=== PATIENT | female | born 2000 | race Caucasian/White ===

== ENCOUNTER 2021-12-04 16:45 | Emergency (ER) | payer BC, SELFPAY ==
[2021-12-04 16:55] VITALS: BP 130/83; PULSE 91; RESP 16; TEMP 37.1; O2SAT 100
--- NOTE | 2021-12-04 18:36 | ED.NAVMDI ---
HPI - Nausea/Vomiting/Diarrhea General Chief complaint: Nausea/Vomiting/Diarrhea Stated complaint: Abdominal Pain Time Seen by Provider: 12/04/21 18:37 Source: patient, family, RN notes reviewed and old records reviewed Mode of arrival: ambulatory Limitations: no limitations History of Present Illness HPI Narrative: 21-year-old female accompanied by family member has had 1 to 2 months of diarrhea episodes. Patient has had decreased appetite, some nausea also has had some vomiting.Patient denies any antibiotic use in the last 6 months. She states she does have some burping, no acute abdominal pain or bloating experienced. Patient reports that she has taken Imodium which did help resolve diarrhea but then it will come back.Patient reports that her memses is up to date and she took test recently which was negative. MD elicited complaint: nausea, vomiting and diarrhea Onset (ago): month(s) (1-2 months) Related Data Allergies Allergy/AdvReac Type Severity Reaction Status Date / Time No Known Allergies Allergy Verified 12/04/21 17:01 Review of Systems Review of Systems: CONSTITUTIONAL: Denies fever, chills, or sweats. EYES: Denies visual changes, redness, or discharge. ENT: Denies rhinorrhea, congestion, sore throat, or otalgia. CARDIOVASCULAR: Denies chest pain, palpitations, or edema. RESPIRATORY: Denies cough or dyspnea. GASTROINTESTINAL: Denies any acute abdominal pain reports pressure mild at times to abdomen, positive for nausea, vomiting, or diarrhea. GENITOURINARY: Denies dysuria or hematuria. SKIN: Denies rash or itching. MUSCULOSKELETAL: Denies back pain, joint pain, or myalgia. NEUROLOGIC: Denies headache, numbness, or weakness. PSYCHIATRIC: Denies anxiety or depression. [facility] Surgical History Surgical History (Updated 12/06/21 @ 16:12 by Cristel Ivey NP) H/O eye surgery Social History Social History (Updated 12/06/21 @ 16:13 by Cristel Ivey NP) Smoking status: Never smoker Alcohol intake: current Alcohol use details: rare Substance use type: marijuana Last use: occasional use Living arrangements: with family Gender identity (if verbalized by the patient): Female Comments At time of signature, agree with nursing past medical, surgical, social and family history. There is no relevant family history pertinent to the presenting complaint Exam Narrative: GENERAL: Well-appearing, well-nourished, BMI 29.6 and in no acute distress. HEAD: Normocephalic, atraumatic. EYES: PERRLA and EOMI. ENT: Nares clear, no rhinorrhea or epistaxis. Mucous membranes moist.TM's normal with good light reflex, throat pink with no lesions or exudates, no tonsil swelling NECK: Supple.no lymphadenopathy CHEST: Clear to auscultation. No respiratory distress. SAO2 100% on room air HEART: Regular rate and rhythm. No murmur heard. Normal peripheral pulses. ABDOMEN: Soft, nontender and soft to palpation, nondistended, normal active bowel sounds. EXTREMITIES: Normal range of motion. No edema SKIN: Warm, dry, no rash NEURO: No focal deficits. Alert and oriented x3. Course Course Level of Care: Express Care Visit Vital Signs Vital signs: Vital Signs Temperature 37.1 C 12/04/21 16:55 Pulse Rate 91 12/04/21 16:55 Respiratory Rate 16 12/04/21 16:55 Blood Pressure 130/83 12/04/21 16:55 Pulse Oximetry 100 12/04/21 16:55 Oxygen Delivery Room Air 12/04/21 16:55 Temperature 37.1 C 12/04/21 16:55 Pulse Rate 91 12/04/21 16:55 Respiratory Rate 16 12/04/21 16:55 Blood Pressure 130/83 12/04/21 16:55 Pulse Oximetry 100 12/04/21 16:55 Oxygen Delivery Room Air 12/04/21 16:55 MDM - Nausea/Vomiting/Diarrhea Lab Data Attestation: I reviewed the patient's lab results. Lab results narrative: urine dip Labs: Urine Glucose Negative Reference Range: Negative Urine Bilirubin Negative
== END 2021-12-04 18:53 | disposition home or self-care (01) ==
PROVIDERS: Emergency Provider Registered Nurse
DX: K52.9 Noninfective gastroenteritis and colitis, unspecified (principal)
CPT/HCPCS: 81003; 99213; G0463